=== PATIENT | male | born 1955 | race Caucasian/White ===

== ENCOUNTER 2019-10-29 13:39 | Observation (INO) ==
[2019-10-29] MEDS ORDERED: Naloxone 0.4 MG/ML INJ IVP PRN (15:40)
[2019-10-29] MEDS ORDERED: Ondansetron 4 MG/2 ML VIAL IVP PRN (15:40)
[2019-10-29] MEDS ORDERED: Gadolinium Contrast Agent (WT Based) IV PRN (15:47)
[2019-10-29] MEDS ORDERED: Ketorolac 15 MG/ML VIAL IVP ONE (15:51)
[2019-10-29] MEDS ORDERED: Ipratropium/Albuterol Neb 3 ML IH PRN (16:11)
[2019-10-29 16:15] LABS: Basophils # 0.1 K/mcL (0.0-0.2); Basophils % 0.7 %; Eosinophils # 0.1 K/mcL (0.0-0.6); Eosinophils % 0.9 %; Hematocrit 44.9 % (37.5-50.1); Immature Granulocytes % 0.3 % (0-4); Lymphocytes # 2.4 K/mcL (0.6-4.6); Lymphocytes % 20.5 %; Mean Corpuscular HGB Conc 33.4 g/dL (31.6-35.5); Mean Corpuscular Hemoglobin 29.8 pg (28.0-33.3); Mean Corpuscular Volume 89.3 fL (83.0-100.0); Mean Platelet Volume 9.2 fL (9.4-12.4); Monocytes # 0.9 K/mcL (0.0-1.3); Monocytes % 7.5 %; Neutrophils # 8.2 K/mcL (1.6-8.9); Platelet Count 403 K/mcL (140-400); Red Blood Count 5.03 M/mcL (4.19-5.50); Red Cell Distribution Width 13.4 % (11.5-14.5); Segmented Neutrophils % 70.1 %; White Blood Count 11.7 K/mcL (4.3-11.1)
[2019-10-29 16:30] LABS: Alanine Aminotransferase 18 Units/L (7-52); Albumin 4.8 g/dL (3.5-5.7); Albumin/Globulin Ratio 1.7 (1.1-2.2); Alkaline Phosphatase 73 Units/L (34-104); Aspartate Amino Transferase 13 Units/L (13-39); BUN/Creatinine Ratio 23 (6-26); Bilirubin,Total 0.5 mg/dL (0.3-1.0); Blood Urea Nitrogen 16 mg/dL (8-23); C-Reactive Protein 23 mg/L (Less than 10); Calcium 10.4 mg/dL (8.6-10.3); Carbon Dioxide 25 mEq/L (23-29); Chloride 103 mEq/L (98-107); Globulin 2.8 g/dL (2.4-3.5); Glucose 102 mg/dL (70-105); Osmolality,Calculated 283 (280-300); Potassium 4.1 mEq/L (3.5-5.1); Sodium 136 mEq/L (136-145); Total Protein 7.6 g/dL (6.4-8.9); eGFR For African Americans > 60 (> 60); eGFR For Non-African Americans > 60 (> 60)
[2019-10-30] MEDS ORDERED: Ketorolac 15 MG/ML VIAL IVP ONE (02:37)
[2019-10-30 04:23] LABS: Basophils # 0.1 K/mcL (0.0-0.2); Basophils % 0.7 %; Eosinophils # 0.1 K/mcL (0.0-0.6); Eosinophils % 1.3 %; Hematocrit 38.9 % (37.5-50.1); Immature Granulocytes % 0.2 % (0-4); Lymphocytes % 31.6 %; Mean Corpuscular HGB Conc 33.7 g/dL (31.6-35.5); Mean Corpuscular Hemoglobin 30.5 pg (28.0-33.3); Mean Corpuscular Volume 90.5 fL (83.0-100.0); Mean Platelet Volume 9.2 fL (9.4-12.4); Monocytes # 0.9 K/mcL (0.0-1.3); Monocytes % 9.5 %; Neutrophils # 5.3 K/mcL (1.6-8.9); Platelet Count 331 K/mcL (140-400); Red Cell Distribution Width 13.4 % (11.5-14.5); Segmented Neutrophils % 56.7 %; White Blood Count 9.3 K/mcL (4.3-11.1)
[2019-10-30 04:28] LABS: Hemoglobin 13.1 g/dL (12.9-16.9)
[2019-10-30 04:30] LABS: INR 1.1; Prothrombin Time 12.2 Seconds (9.4-12.1)
[2019-10-30 04:33] LABS: Activated Partial Thrombo Time 35.1 Seconds (26.0-36.0)
[2019-10-30 04:39] LABS: BUN/Creatinine Ratio 31 (6-26); Blood Urea Nitrogen 22 mg/dL (8-23); Calcium 9.5 mg/dL (8.6-10.3); Carbon Dioxide 24 mEq/L (23-29); Chloride 107 mEq/L (98-107); Glucose 98 mg/dL (70-105); Magnesium 1.9 mg/dL (1.6-2.6); Osmolality,Calculated 283 (280-300); Phosphorous 3.1 mg/dL (2.7-4.5); Potassium 4.1 mEq/L (3.5-5.1); Sodium 135 mEq/L (136-145); eGFR For African Americans > 60 (> 60); eGFR For Non-African Americans > 60 (> 60)
[2019-10-30] MEDS: amLODIPine 5 MG TABLET PO SCH (07:41)
[2019-10-30] MEDS: lisinopriL 20 MG TABLET PO SCH (07:41)
[2019-10-30] MEDS ORDERED: *HR* LORazepam 2 MG/ML VIAL IVP ONE ×2 (09:50→18:10)
[2019-10-30] MEDS ORDERED: Isovue-370 500 ML BOTTLE IVP ONE ×4 (13:37→16:03)
[2019-10-30] MEDS ORDERED: Gadolinium Contrast Agent (WT Based) IV PRN ×2 (15:03→17:41)
[2019-10-30] MEDS: Ketorolac 15 MG/ML VIAL IVP PRN (21:30)
[2019-10-31] MEDS: Ketorolac 15 MG/ML VIAL IVP PRN ×3 (04:17→17:26)
[2019-10-31 06:32] LABS: Basophils # 0.1 K/mcL (0.0-0.2); Basophils % 0.6 %; Eosinophils # 0.2 K/mcL (0.0-0.6); Eosinophils % 1.9 %; Hematocrit 38.1 % (37.5-50.1); Hemoglobin 12.8 g/dL (12.9-16.9); Immature Granulocytes % 0.3 % (0-4); Lymphocytes # 2.3 K/mcL (0.6-4.6); Lymphocytes % 29.9 %; Mean Corpuscular HGB Conc 33.6 g/dL (31.6-35.5); Mean Corpuscular Volume 89.4 fL (83.0-100.0); Mean Platelet Volume 9.2 fL (9.4-12.4); Monocytes # 0.8 K/mcL (0.0-1.3); Monocytes % 9.8 %; Neutrophils # 4.5 K/mcL (1.6-8.9); Platelet Count 310 K/mcL (140-400); Red Blood Count 4.26 M/mcL (4.19-5.50); Red Cell Distribution Width 13.2 % (11.5-14.5); Segmented Neutrophils % 57.5 %; White Blood Count 7.8 K/mcL (4.3-11.1)
[2019-10-31 07:01] LABS: BUN/Creatinine Ratio 37 (6-26); Blood Urea Nitrogen 25 mg/dL (8-23); Calcium 9.3 mg/dL (8.6-10.3); Carbon Dioxide 24 mEq/L (23-29); Chloride 105 mEq/L (98-107); Glucose 101 mg/dL (70-105); Osmolality,Calculated 287 (280-300); Phosphorous 3.2 mg/dL (2.7-4.5); Potassium 4.1 mEq/L (3.5-5.1); Sodium 136 mEq/L (136-145); eGFR For African Americans > 60 (> 60); eGFR For Non-African Americans > 60 (> 60)
[2019-10-31] MEDS ORDERED: *HR* LORazepam 0.5 MG TABLET PO ONE (08:54)
[2019-10-31] MEDS: amLODIPine 5 MG TABLET PO SCH (09:57)
[2019-10-31] MEDS: lisinopriL 20 MG TABLET PO SCH (09:57)
[2019-10-31] MEDS ORDERED: *HR* Midazolam HCl 2 MG/2 ML VIAL IVP ONE (14:03)
[2019-10-31] MEDS ORDERED: 0.9 % Sodium Chloride 500 ML ONE (14:18)
[2019-10-31] MEDS: *HR* FentaNYL (PF) 100 MCG/2 ML VIAL IVP ONE ×2 (14:25→14:33)
[2019-10-31] MEDS ORDERED: Gadolinium Contrast Agent (WT Based) IV PRN (16:15)
[2019-10-31 19:05] VITALS: BP 145/77
== END 2019-10-31 19:25 | disposition home or self-care (01) ==
LOC: 3NENU 13:39 → EMEROOARM 13:39 → 3NENU 17:11
PROVIDERS: ADMIT Internal Medicine; ATTEND Internal Medicine

== ENCOUNTER 2021-08-17 16:16 | Observation (INO) ==
[2021-08-17] MEDS ORDERED: Naloxone 0.4 MG/ML INJ IVP PRN (18:38)
[2021-08-17] MEDS ORDERED: Ondansetron 4 MG/2 ML VIAL IVP PRN (18:38)
[2021-08-17 20:16] LABS: Troponin I 1.51 ng/mL (< 0.04)
[2021-08-17] MEDS ORDERED: *HR* Heparin 5,000 UNIT/ML VIAL IVP ONE (20:46)
[2021-08-17] MEDS ORDERED: *HR* Heparin 5,000 UNIT/ML VIAL IVP PRN ×2 (20:46)
[2021-08-17] MEDS ORDERED: Heparin 25,000 UNIT/250 ML 25,000 UNIT/250 ML IV.SOLN IVC SCH (21:00)
[2021-08-17] MEDS ORDERED: Nitroglycerin 0.4 MG TAB.SUBL SL PRN (21:02)
[2021-08-17] MEDS ORDERED: *HR* LORazepam 0.5 MG TABLET PO PRN (21:13)
[2021-08-17 21:20] LABS: Hematocrit 34.6 % (37.5-50.1); Hemoglobin 11.1 g/dL (12.9-16.9); Mean Corpuscular HGB Conc 32.1 g/dL (31.6-35.5); Mean Corpuscular Hemoglobin 27.6 pg (28.0-33.3); Mean Corpuscular Volume 86.1 fL (83.0-100.0); Mean Platelet Volume 9.1 fL (9.4-12.4); Platelet Count 287 K/mcL (140-400); Red Blood Count 4.02 M/mcL (4.19-5.50); Red Cell Distribution Width 22.3 % (11.5-14.5); White Blood Count 12.1 K/mcL (4.3-11.1)
[2021-08-17 21:31] LABS: Heparin anti-factor XA UFH < 0.04 IU/mL (0.30-0.70); Prothrombin Time 11.5 Seconds (9.4-12.1)
[2021-08-17] MEDS: Azithromycin 500 MG in 0.9 % Sodium Chloride 250 ML IVPB SCH (22:00)
[2021-08-17 22:10] LABS: Lactate Dehydrogenase 156 Units/L (140-271); Total Protein 6.1 g/dL (6.4-8.9)
[2021-08-17] MEDS: Ipratropium/Albuterol Neb 3 ML IH SCH (23:18)
[2021-08-17] MEDS: MethylPREDNISolone 40 MG/ML VIAL IVP SCH (23:51)
[2021-08-18] MEDS: Ipratropium/Albuterol Neb 3 ML IH SCH ×6 (04:09→23:53)
[2021-08-18] MEDS: MethylPREDNISolone 40 MG/ML VIAL IVP SCH ×2 (05:54→18:24)
[2021-08-18 06:48] LABS: Basophils % 0.1 %; Hematocrit 33.8 % (37.5-50.1); Hemoglobin 10.4 g/dL (12.9-16.9); Immature Granulocytes % 0.5 % (0-4); Lymphocytes # 0.8 K/mcL (0.6-4.6); Lymphocytes % 7.7 %; Mean Corpuscular HGB Conc 30.8 g/dL (31.6-35.5); Mean Corpuscular Hemoglobin 26.6 pg (28.0-33.3); Mean Corpuscular Volume 86.4 fL (83.0-100.0); Mean Platelet Volume 9.5 fL (9.4-12.4); Monocytes # 0.2 K/mcL (0.0-1.3); Monocytes % 2.2 %; Neutrophils # 9.2 K/mcL (1.6-8.9); Platelet Count 279 K/mcL (140-400); Red Blood Count 3.91 M/mcL (4.19-5.50); Red Cell Distribution Width 22.5 % (11.5-14.5); Segmented Neutrophils % 89.5 %; White Blood Count 10.2 K/mcL (4.3-11.1)
[2021-08-18 07:04] LABS: BUN/Creatinine Ratio 37 (6-26); Blood Urea Nitrogen 22 mg/dL (8-23); Calcium 8.8 mg/dL (8.6-10.3); Carbon Dioxide 27 mEq/L (23-29); Chloride 105 mEq/L (98-107); Glucose 128 mg/dL (70-105); Osmolality,Calculated 291 (280-300); Potassium 4.4 mEq/L (3.5-5.1); Sodium 138 mEq/L (136-145); eGFR For African Americans > 60 (> 60); eGFR For Non-African Americans > 60 (> 60)
[2021-08-18] MEDS ORDERED: Perflutren Lipid Microsphere 1.3 ML in 0.9 % Sodium Chloride 8.7 ML IVP PRN (13:08)
[2021-08-18] MEDS ORDERED: Furosemide 40 MG/4 ML VIAL IVP ONE (13:10)
[2021-08-18] MEDS: *HR* Heparin 5,000 UNIT/ML VIAL SQ SCH (18:21)
[2021-08-18] MEDS: Azithromycin 500 MG in 0.9 % Sodium Chloride 250 ML IVPB SCH (20:09)
[2021-08-19] MEDS: Ipratropium/Albuterol Neb 3 ML IH SCH ×2 (03:54→07:53)
[2021-08-19 04:38] LABS: Hematocrit 31.9 % (37.5-50.1); Hemoglobin 10.2 g/dL (12.9-16.9); Mean Corpuscular Hemoglobin 27.9 pg (28.0-33.3); Mean Corpuscular Volume 87.2 fL (83.0-100.0); Mean Platelet Volume 9.6 fL (9.4-12.4); Platelet Count 285 K/mcL (140-400); Red Blood Count 3.66 M/mcL (4.19-5.50); Red Cell Distribution Width 22.5 % (11.5-14.5); White Blood Count 11.8 K/mcL (4.3-11.1)
[2021-08-19 04:57] LABS: BUN/Creatinine Ratio 41 (6-26); Blood Urea Nitrogen 28 mg/dL (8-23); Calcium 8.6 mg/dL (8.6-10.3); Carbon Dioxide 29 mEq/L (23-29); Chloride 107 mEq/L (98-107); Glucose 108 mg/dL (70-105); Osmolality,Calculated 296 (280-300); Potassium 3.9 mEq/L (3.5-5.1); Sodium 140 mEq/L (136-145); eGFR For African Americans > 60 (> 60); eGFR For Non-African Americans > 60 (> 60)
[2021-08-19] MEDS ORDERED: *HR* LORazepam 2 MG/ML VIAL IVP ONE (05:20)
[2021-08-19] MEDS: MethylPREDNISolone 40 MG/ML VIAL IVP SCH (05:37)
[2021-08-19] MEDS: *HR* Heparin 5,000 UNIT/ML VIAL SQ SCH (05:38)
[2021-08-19 08:27] VITALS: TEMP 97.9
[2021-08-19] MEDS ORDERED: Folic Acid 1 MG TABLET PO SCH (09:00)
[2021-08-19] MEDS ORDERED: lisinopriL 10 MG TABLET PO SCH (09:00)
[2021-08-19] MEDS ORDERED: Ipratropium/Albuterol Neb 3 ML IH PRN (10:24)
[2021-08-19 12:14] VITALS: BP 132/45; PULSE 80; O2SAT 95
[2021-08-19] MEDS ORDERED: Aspirin Enteric Coated 81 MG Tablet PO SCH (13:45)
[2021-08-19 15:15] LABS: Total Protein,Pleural Fluid 2.9 g/dL
[2021-08-19 16:01] LABS: RBC,Pleural Fluid 3000 RBC/mcL
[2021-08-19 16:03] LABS: RBC,Pleural Fluid < 2000 RBC/mcL
[2021-08-19 16:47] LABS: Appearance of Pleural Fl Hazy (Clear)
[2021-08-19] MEDS ORDERED: Azithromycin 250 MG TABLET PO SCH (21:00)
[2021-08-22 22:40] LABS: Fluid Source for Albumin R PLEURAL
[2021-08-22 22:47] LABS: Fluid Source for Albumin PLEURAL FL
== END 2021-08-19 16:58 | disposition home or self-care (01) ==
LOC: 3ANU → SUATTDRO 18:26
PROVIDERS: ADMIT Internal Medicine; ATTEND Internal Medicine

== ENCOUNTER 2021-10-08 11:04 | Observation (INO) ==
[2021-10-08] MEDS ORDERED: *HR* FentaNYL (PF) 100 MCG/2 ML VIAL ONE (13:22)
[2021-10-08] MEDS ORDERED: *HR* FentaNYL (PF) 100 MCG/2 ML VIAL IVP ONE ×2 (13:22→20:45)
[2021-10-08] MEDS ORDERED: *HR* OxyCODONE Immed Rel 5 MG TABLET PO PRN (15:23)
[2021-10-08] MEDS ORDERED: Naloxone 0.4 MG/ML INJ IVP PRN (15:55)
[2021-10-08] MEDS ORDERED: Ondansetron 4 MG/2 ML VIAL IVP PRN (15:55)
[2021-10-08] MEDS: *HR* OxyCODONE Immed Rel 5 MG TABLET PO PRN ×3 (16:03→23:21)
[2021-10-08] MEDS: lisinopriL 10 MG TABLET PO SCH (16:58)
[2021-10-08 17:08] LABS: Basophils # 0.1 K/mcL (0.0-0.2); Basophils % 0.5 %; Eosinophils # 0.1 K/mcL (0.0-0.6); Eosinophils % 0.6 %; Hematocrit 39.9 % (37.5-50.1); Hemoglobin 12.9 g/dL (12.9-16.9); Immature Granulocytes % 0.6 % (0-4); Lymphocytes % 6.7 %; Mean Corpuscular HGB Conc 32.3 g/dL (31.6-35.5); Mean Corpuscular Hemoglobin 28.9 pg (28.0-33.3); Mean Corpuscular Volume 89.5 fL (83.0-100.0); Monocytes # 0.9 K/mcL (0.0-1.3); Monocytes % 6.4 %; Neutrophils # 12.2 K/mcL (1.6-8.9); Platelet Count 255 K/mcL (140-400); Red Blood Count 4.46 M/mcL (4.19-5.50); Red Cell Distribution Width 15.4 % (11.5-14.5); Segmented Neutrophils % 85.2 %; White Blood Count 14.3 K/mcL (4.3-11.1)
[2021-10-08 17:15] LABS: INR 1.1; Prothrombin Time 12.5 Seconds (9.4-12.1)
[2021-10-08 17:37] LABS: BUN/Creatinine Ratio 22 (6-26); Blood Urea Nitrogen 13 mg/dL (8-23); Calcium 9.4 mg/dL (8.6-10.3); Carbon Dioxide 23 mEq/L (23-29); Chloride 103 mEq/L (98-107); Glucose 101 mg/dL (70-105); Osmolality,Calculated 280 (280-300); Potassium 4.1 mEq/L (3.5-5.1); Sodium 135 mEq/L (136-145); eGFR For African Americans > 60 (> 60); eGFR For Non-African Americans > 60 (> 60)
[2021-10-08] MEDS: *HR* LORazepam 0.5 MG TABLET PO PRN (20:11)
[2021-10-08] MEDS: Budesonide/Formoterol 160/4.5 1 PUFF INH IH SCH (20:37)
[2021-10-08] MEDS: *HR* Heparin 5,000 UNIT/ML VIAL SQ SCH (21:08)
[2021-10-09 01:18] LABS: Basophils # 0.1 K/mcL (0.0-0.2); Basophils % 0.7 %; Eosinophils # 0.1 K/mcL (0.0-0.6); Eosinophils % 1.2 %; Hematocrit 36.6 % (37.5-50.1); Immature Granulocytes % 0.3 % (0-4); Lymphocytes # 1.3 K/mcL (0.6-4.6); Lymphocytes % 14.8 %; Mean Corpuscular HGB Conc 32.8 g/dL (31.6-35.5); Mean Corpuscular Hemoglobin 29.6 pg (28.0-33.3); Mean Corpuscular Volume 90.1 fL (83.0-100.0); Mean Platelet Volume 9.3 fL (9.4-12.4); Monocytes # 0.9 K/mcL (0.0-1.3); Monocytes % 9.8 %; Neutrophils # 6.6 K/mcL (1.6-8.9); Platelet Count 253 K/mcL (140-400); Red Blood Count 4.06 M/mcL (4.19-5.50); Red Cell Distribution Width 15.3 % (11.5-14.5); Segmented Neutrophils % 73.2 %
[2021-10-09 01:44] LABS: BUN/Creatinine Ratio 23 (6-26); Blood Urea Nitrogen 14 mg/dL (8-23); Calcium 9.3 mg/dL (8.6-10.3); Carbon Dioxide 24 mEq/L (23-29); Chloride 103 mEq/L (98-107); Glucose 94 mg/dL (70-105); Osmolality,Calculated 280 (280-300); Potassium 4.1 mEq/L (3.5-5.1); Sodium 135 mEq/L (136-145); eGFR For African Americans > 60 (> 60); eGFR For Non-African Americans > 60 (> 60)
[2021-10-09] MEDS: *HR* OxyCODONE Immed Rel 5 MG TABLET PO PRN ×3 (02:51→18:04)
[2021-10-09] MEDS: *HR* LORazepam 0.5 MG TABLET PO PRN ×2 (02:58→18:04)
[2021-10-09] MEDS: *HR* Heparin 5,000 UNIT/ML VIAL SQ SCH ×3 (05:48→21:21)
[2021-10-09] MEDS: Budesonide/Formoterol 160/4.5 1 PUFF INH IH SCH ×2 (07:20→19:54)
[2021-10-09] MEDS ORDERED: NON-FORMULARY MEDICATION 1 EACH EACH (Ipratropium/Albuterol Sulfate 4 GM Mist.Inhal) IH SCH (09:00)
[2021-10-09] MEDS ORDERED: Ipratropium/Albuterol Neb 3 ML IH PRN (10:01)
[2021-10-09] MEDS: Folic Acid 1 MG TABLET PO SCH (10:02)
[2021-10-09] MEDS: Spironolactone 25 MG TABLET PO SCH (10:02)
[2021-10-09] MEDS: Ipratropium/Albuterol Neb 3 ML IH SCH (10:02)
[2021-10-09] MEDS: VIT C PO SCH (10:03)
[2021-10-09] MEDS: COPPER PO SCH (10:03)
[2021-10-09] MEDS: Aspirin Enteric Coated 81 MG Tablet PO SCH (10:03)
[2021-10-09] MEDS: VIT A PO SCH (10:03)
[2021-10-09] MEDS: ZINC PO SCH (10:03)
[2021-10-09] MEDS: VIT E PO SCH (10:03)
[2021-10-09] MEDS: lisinopriL 10 MG TABLET PO SCH (10:07)
[2021-10-09] MEDS ORDERED: *HR* LORazepam 0.5 MG TABLET PO ONE (10:19)
[2021-10-09] MEDS ORDERED: *HR* OxyCODONE Immed Rel 5 MG TABLET PO PRN (10:20)
[2021-10-09] MEDS ORDERED: *HR* LORazepam 2 MG/ML VIAL IVP ONE (11:08)
[2021-10-09] MEDS ORDERED: *HR* FentaNYL (PF) 100 MCG/2 ML VIAL IVP ONE (12:42)
[2021-10-09 15:08] LABS: Lactate Dehydrogenase 150 Units/L (140-271); Total Protein 6.1 g/dL (6.4-8.9)
[2021-10-09 15:11] LABS: RBC,Pleural Fluid 3000 RBC/mcL
[2021-10-09 15:12] LABS: Appearance of Pleural Fl Hazy (Clear)
[2021-10-09 15:32] LABS: Total Protein,Pleural Fluid 3.7 g/dL
[2021-10-09 15:55] LABS: Eosinophils,Pleural Fluid 0 %
[2021-10-10] MEDS: *HR* OxyCODONE Immed Rel 5 MG TABLET PO PRN ×3 (03:19→16:10)
[2021-10-10] MEDS: *HR* LORazepam 0.5 MG TABLET PO PRN (03:20)
[2021-10-10] MEDS: *HR* Heparin 5,000 UNIT/ML VIAL SQ SCH ×2 (06:24→14:46)
[2021-10-10] MEDS: Budesonide/Formoterol 160/4.5 1 PUFF INH IH SCH (07:54)
[2021-10-10] MEDS: lisinopriL 10 MG TABLET PO SCH (09:33)
[2021-10-10] MEDS: COPPER PO SCH (09:33)
[2021-10-10] MEDS: VIT A PO SCH (09:33)
[2021-10-10] MEDS: ZINC PO SCH (09:33)
[2021-10-10] MEDS: VIT E PO SCH (09:33)
[2021-10-10] MEDS: VIT C PO SCH (09:33)
[2021-10-10] MEDS: Aspirin Enteric Coated 81 MG Tablet PO SCH (09:40)
[2021-10-10] MEDS: Spironolactone 25 MG TABLET PO SCH (09:40)
[2021-10-10] MEDS: Folic Acid 1 MG TABLET PO SCH (09:40)
[2021-10-10 11:25] VITALS: TEMP 98
[2021-10-10] MEDS ORDERED: *HR* LORazepam 2 MG/ML VIAL IVP ONE (12:27)
[2021-10-10 14:47] VITALS: BP 130/88; PULSE 97; O2SAT 94
== END 2021-10-10 16:25 | disposition home or self-care (01) ==
LOC: SAMDAY 11:04 → 3NENU 11:04 → SUATTDRO 15:00
PROVIDERS: ADMIT Internal Medicine; ATTEND Family Medicine